=== PATIENT | female | born 1970 | race Caucasian/White ===

== ENCOUNTER → 2016-11-06 | Outpatient (CLI) | payer BC ==
[~2016-11-06] MED LIST: AMITRYPTYLINE PO; AMOXICILLIN500 M1 PO; BACLOFEN10 MG PO; CELEXA20 MG PO; COLACE PO; DILAUDID2 MG PO; FLEXERIL; FLEXERIL10 MG PO; LEXAPRO20 MG PO; MEDROL4 MG/DOSE- PO; MOBIC15 MG PO; MUSCLE RELAXER; NAPROSYN500 MG PO; PANTOPRAZOLE SO20 MG PO; PERCOCET; PHENERGAN25 M1 PO; PRAVACHOL20 MG PO; PRAVASTATIN SOD10 MG PO; SYNTHROID PO; TRAMADOL HCL50 M1 PO; ULTRAM PO; VALIUM2 MG PO; ZOFRAN ODT4 MG/UDTAB PO
--- NOTE | ~2016-11-06 | CT57 ---
[facility] A Service [facility] RADIOLOGY TEXT RESULTS PATIENT: CRISTY WILKERSON LOCATION: [facility] : 68 UNIT #: [id number] AGE: [address]: Mau Andrew MD SEX: F ORDER DR: [id number] [place] [id number] O MR#: [id number] Acc #: [id number] NAME: CRISTY WILKERSON : 1970 SEX: F STUDY DATE/TIME: 11/06/2016 13:13 UNIT: [facility] ROOM: STUDY DESCRIPTION: CT Chest Wo Cont Attending Physician: Mau Andrew M.D. Referring Physician: Mau Andrew M.D. Ordering Physician: Mau Andrew M.D. Primary Care Physician: Mau Andrew M.D. MEDICAL IMAGING REPORT This report is preliminary unless electronic signature is present. EXAM CT chest without contrast. INDICATIONS Follow up pulmonary nodule. PROCEDURE Unenhanced CT chest. This CT exam was performed with one or more of the following radiation dose reduction techniques: automatic exposure control, adjustment of mA and/or kV according to patient size, and iterative reconstruction. COMPARISON 01/08/2015. Also with 07/10/2014. FINDINGS 5 mm nodule in the right costophrenic sulcus previously measured 7 mm on 07/10/2014. No new pulmonary nodules. No pleural fluid or pneumothorax. No adenopathy. Hepatic steatosis. No acute findings in the included upper abdomen. No aggressive appearing bone lesion. IMPRESSION Stable or slightly decrease in size of a 5 mm nodule at the right lung base. It has been slightly smaller compared with 07/10/2014 in keeping with benign finding. No new nodules. COMMENTS Hepatic steatosis. Dictated by... Chris Stevenson M.D. [facility] A Service [facility] RADIOLOGY TEXT RESULTS PATIENT: CRISTY WILKERSON LOCATION: [facility] : 68 UNIT #: [id number] AGE: [address]: Mau Andrew MD SEX: F ORDER DR: THIS IS AN ELECTRONICALLY VERIFIED REPORT Chris Stevenson M.D. at 11/10/2016 8:19 AM Roxana TD: 11/06/2016 20:04 JOB #: [id number] MEDICAL IMAGING REPORT Page 1 of 1
== END | disposition home or self-care (01) ==
LOC: SCT 12:53
DX: R91.1 Solitary pulmonary nodule (principal)
CPT/HCPCS: 71250

== ENCOUNTER → 2016-12-01 | Outpatient (CLI) | payer BC ==
--- NOTE | ~2016-12-01 | MR18 ---
[facility] A Service of [facility] RADIOLOGY TEXT RESULTS PATIENT: CRISTY WILKERSON LOCATION: [facility] : 68 UNIT #: [id number] AGE: [address]: Mau Andrew MD SEX: F ORDER DR: [id number] [address] [address] [id number] O MR#: [id number] Acc #: [id number] NAME: CRISTY WILKERSON : 1970 SEX: F STUDY DATE/TIME: 12/01/2016 13:11 UNIT: [facility] ROOM: STUDY DESCRIPTION: MR Brain Wo Contrast Attending Physician: Mau Andrew M.D. Referring Physician: Mau Andrew M.D. Ordering Physician: Mau Andrew M.D. Primary Care Physician: Mau Andrew M.D. MRI CENTER REPORT This report is preliminary unless electronic signature is present. EXAM Brain MRI. HISTORY Posterior headaches increasing in frequency and severity over the past 1-2 months. TECHNIQUE Multiplanar imaging brain was performed with short and long TR. FINDINGS On diffusion weighted images, there is no evidence of abnormal restricted diffusion to suggest a recent infarct. The routine brain images show a few tiny foci of bright FLAIR signal around the ventricles consistent with minimal chronic deep white matter ischemic change. There is no evidence of mass lesion, hemorrhage, or edema. No midline shift is noted. Extraaxial structures are unremarkable. IMPRESSION Minimal chronic ischemic changes around the ventricles. Otherwise negative. Dictated by... Wei Velazquez M.D. THIS IS AN ELECTRONICALLY VERIFIED REPORT Wei Velazquez M.D. at 12/09/2016 2:03 PM BIGGF/jeannette TD: 12/02/2016 01:27 [facility] A Service of [facility] RADIOLOGY TEXT RESULTS PATIENT: CRISTY WILKERSON LOCATION: [facility] : 68 UNIT #: [id number] AGE: [address]: Mau Andrew MD SEX: F ORDER DR: JOB #: [id number] MRI CENTER REPORT Page 1 of 1
== END | disposition home or self-care (01) ==
LOC: SMRI 12:57
DX: R51 Headache (principal)
CPT/HCPCS: 70551